=== PATIENT | male | born 1955 | race Caucasian/White ===

== ENCOUNTER → 2016-07-11 | Outpatient (CLI) | payer OTHER ==
[~2016-07-11] MED LIST: ARMOUR THYROID30 MG PO; ASPIRIN325 MG PO; AVEED750 MG/3 M IM; COZAAR50 MG PO; DEPO-TESTOS200 MG/ML IM; DEXILANT60 MG PO; DHEA50 M1 PO; ELIQUIS5 MG PO; FAMVIR 500 MG PO; FEOSOL325 MG PO; FIORINAL1 TAB PO; FISH OIL 1,2001 EACH PO; FLOMAX0.4 MG PO; FLUOCIN ACET TOP; LISINOPRIL2.5 MG PO; LUNESTA3 MG PO; MELATONIN3 MG PO; MULTAQ400 MG PO; NORCO 5-325 TA1 EACH PO; NP THYROID30 MG PO; PERCOCET 5-3251 EACH PO; POLY-IRON150 MG PO; PREVACID30 M1 PO; PROBIOTIC1 EAC2 PO; REFRESH CONTACT12 ML OPHTH; THERAGRAN-M1 TAB PO; TIKOSYN125 MCG PO; TYLENOL EXTRA500 MG PO; ULTRAM50 MG PO; VALIUM5 MG PO; VITAMIN D35000 UNI1 PO; VOLTAREN 1% GE100 GM TOP; ZEBETA5 MG PO; [UNRECOGNIZED DRUG - OTHER] SUB-Q
== END ==
LOC: GLAB 07:26
DX: Z53.9 Procedure and treatment not carried out, unspecified reason (principal)

== ENCOUNTER 2016-08-03 17:38 | Observation (INO) | payer OTHER ==
[~2016-08-03] VITALS: Ht 193 cm; Wt 102.7 kg
--- NOTE | ~2016-08-03 | CATH ---
Cardiac Diagnostic Report Demographics Patient Name YANET Bello Gender Male Date of 1955 Age 60 year(s) Patient Number [id number] Date of Study 08/04/2016 Visit Number [id number] Room Number G6328 [place] [id number] Ht 193.04 cm Wt 102.7 kg Referring Jessie Bertrand Primary Physician Physician Performing Ольга Secondary Physician Physician Aline REY Diagnostic Ольга Assisting Physician Physician Aline REY Interventional Physician Sales Representative Publications Physician Findings and Conclusions Diagnostic Findings and Conclusion Normal LVEDP 6. Mild CAD. Diagnostic Recommendations Medical treatment. Procedure Description The patient was brought to the diagnostic cardiac catheterization-EP laboratory in the fasting, non-sedated state. Informed consent was obtained in the written and verbal form after the risks and benefits were explained. The patient had no further questions and agreed to proceed. The planned puncture-incision site(s) were shaved and prepped with ChloraPrep and draped in the usual sterile manner. Conscious sedation, supplemental oxygen, and pain control medications were delivered by a registered nurse under physician guidance. Surface ECG rhythm, blood pressure measurement, and pulse oximetry were monitored throughout the procedure. Arterial access. The access site was infiltrated with lidocaine. The vessel was entered with the Seldinger technique. A sheath was advanced into the vessel and used for catheter placement. Selective left coronary angiography. A catheter was advanced into the left coronary vessel ostium under Fluoroscopic guidance. Contrast was injected by hand. Images were obtained in multiple projections. Selective right coronary angiography. A catheter was advanced into the right coronary vessel ostium under fluoroscopic guidance. Contrast was injected by hand. Images were obtained in multiple projections. Left heart catheterization. A catheter was advanced across the aortic valve to the left ventricle under fluoroscopic guidance. Resting hemodynamics were obtained. Arterial artery hemostasis was achieved. The patient was transferred to a regular nursing floor via cart accompanied by a nurse. The patient left the laboratory in stable condition. Diagnostic Cath Status: Urgent Procedure Procedure Type Diagnostic procedure:Angiography:, Coronary Angios w/[facility] Indications: Non-ST elevation ID. The procedure was explained in detail to the patient. Risks, complications and alternative treatments were reviewed. Written consent was obtained. Medications Reviewed with Patient prior to Procedure. Angiographic Findings Dominance: Right Cardiac Arteries and Lesion Findings LMCA: Minor Luminal Irregularities. LAD: Minor Luminal Irregularities.Type II. D1 and D2 medium sized. Luminal irregularities. LCx: Minor Luminal Irregularities.OM1 and OM2 very small. OM3 large. RCA: Minor Luminal Irregularities. Procedure Data Procedure Date Date: 08/04/2016Start: 03:16 PMEnd: 03:43 PM Entry Locations - Retrograde Percutaneous access was performed through the Right Radial artery (Primary location). A 6 Fr sheath was inserted. Hemostasis was successfully obtained using Mechanical Compression. Closure Comments: R band with 12 cc air applied by RT. Ede. Procedure Medications Order and Administration + + +---------+ + !Time !Medication !Dosage !Route ! + + +---------+ + !08/04/2016 03:06 PM !0.9% NaCl !20 ml/hr !I.V. drip ! + + +---------+ + !08/04/2016 03:14 PM !Versed !1 mg !I.V. ! + + +---------+ + !08/04/2016 03:18 PM !Radial 2% Lidocaine !40 mg !I.A. ! + + +---------+ + !08/04/2016 03:18 PM !Radial Nitroglycerin !200 mcg ! ! + + +---------+ + !08/04/2016 03:21 PM !Versed !0.5 mg !I.V. ! + + +---------+ + !08/04/2016 03:21 PM !Fentanyl !25 mcg !I.V. ! + + +---------+ + !08/04/2016 03:23 PM !0.9% NaCl !300 ml !I.V. bolus ! + + +---------+ + !08/04/2016 03:28 PM !Fentanyl !50 mcg !I.V. ! + + +---------+ + !08/04/2016 03:28 PM !Versed !0.5 mg !I.V. ! + + +---------+ + !08/04/2016 03:40 PM !Heparin (ACC_3) ! !I.V. drip ! + + +---------+ + Devices Used - A6 Fr. BS JR 4 Diag. Catheterwas used for:Right coronary angiography. - A6 Fr. BS JL 4 Diag. Catheterwas used for:Left coronary angiography. Contrast Material - Isovue 87522 ml Fluoroscopy Time: Diagnostic: 5:00 minutes. Total: 5:00 minutes. Fluoroscopy Dose: Diagnostic: 1500 mGy. Total: 1500 mGy. Estimated Blood Loss: 20 ml. Medical History Performed Procedures and Imaging Results - No ACC stress or imaging studies were performed. Allergies - No known allergies. Risk Factors The patient risk factors include:hypertension, last creatinine: 1.1 mg/dl, creatinine clearance: 103.74 ml/min and former tobacco use. Admission Data Admission Date: 08/03/2016 Admission Time: 05:38 PM Admit Source: Other Admission Medications + +------+-----+---------+---------+ + + !Medication !Dosage!Times!Last !Last !Administered !Comments ! ! ! !Per !Delivery !Delivery ! ! ! ! ! !Day !Date !Time ! ! ! + +------+-----+---------+---------+ + + !Unfractionated ! ! ! ! !Yes ! ! !Heparin (any) ! ! ! ! ! ! ! + +------+-----+---------+---------+ + + !ARB (any) ! ! ! ! !Yes ! ! + +------+-----+---------+---------+ + + !Non-Statin ! ! ! ! !Yes ! ! !(any) ! ! ! ! ! ! ! + +------+-----+---------+---------+ + + Clinical Evaluation Leading to Procedure - The patient's CAD presentation was assessed as: Non-STEMI.The symptom onset was first noted on 07/21/2016 12:00 AM(time was estimated). - The patient's anginal syndrome during the past two weeks was assessed as: Class IV according to the [place] Cardiovascular Society Classification System (CCS). Anti-anginal medications were prescribed during the past two weeks. Hemodynamics Condition: Rest O2 Consumption: Estimated: 266.14Heart Rate: 60 bpm Pressures (mmHg) +-----+ + !Site !Pressure ! +-----+ + !LV !97/-2 ,1 ! +-----+ + !LV !93/1 ,6 ! +-----+ + !AO !63 (74) ! +-----+ + !AO !64 (79) ! +-----+ + Shunts Oxygen Values O2 Capacity 180.88 O2 Consumption 266.14 Discharge Data Discharge Date: 08/04/2016 Hospital Status: Inpatient Signatures dtt: Aline Rolon dtd: 08/04/16 1516 Physician Self Edit
--- NOTE | ~2016-08-03 | CON ---
PATIENT'S NAME: ANNABEL AVILEZ [facility] AGE: 60 Y [address] ROOM: G6328 [place], [place] [address] LOCATION: GPCU ADMIT DATE: 08/03/2016 Consultation DISCHARGE DATE: 08/04/2016 FAMILY PHYSICIAN: KALEN SEGURA MD ATTENDING PHYSICIAN: ESTELLA FAGAN DATE OF CONSULTATION: 08/04/[address] Fagan[address] Dear Dr[address] Fagan: Thank you for asking me to see Mr. Avilez who is a 60-year-old male patient who had a permanent pacemaker placed about a year ago for syncopal spells associated with dizziness and 2nd degree AV block. Since then, he has not had any syncopal spells per se, but has had dizzy spells that preceded syncopal spells off and on, but has never gone to the extent where he would pass out. In that sense, the pacemaker seemed to help him. For the past 4-5 months, he has noticed this pain in the area of the pacemaker which radiates to the left shoulder and down the left arm. The patient does not seem to notice it when he exercises. For most part, it happens at rest or wakes him up from sleep. He walks for exercise almost 3 nights a week and also does weightlifting 2 days a week which is fairly strenuous. These do not seem to cause any symptoms of chest pain. For the past 2 weeks, he has noticed that there was low background pain, on top of which he developed intermittently increasing severity of the pain that seemed to last a few minutes each time without any associated features. He has noticed those to be more common at night in the last 2-3 weeks that wakes him up from sleep. He has also noticed that if he lies on his left shoulder, the pain comes on as well. He has been in functional class 2 with no paroxysmal nocturnal dyspnea or orthopnea. There is no history of palpitation. However, his pacemaker checked last revealed that he had an episode of atrial fibrillation which he was not aware of. This lasted about 30 minutes or so. There is no ankle swelling. The patient denies having hypertension, even though he is on losartan. He denies type 2 diabetes. His lipids are in the upper normal range. He never smoked and there is no family history of premature coronary artery disease. He denies PR, angina, or nitroglycerin use. There is no history of rheumatic fever, heart murmur, heart failure, dilated or enlarged heart, or any diagnosed cardiac arrhythmias until this atrial fibrillation was diagnosed. The patient has what appears to be multiple hormone replacement therapy through cytogenetics and this includes testosterone growth hormone as well as PATIENT'S NAME: ANNABEL AVILEZ [facility] AGE: 60 Y [address] ROOM: G6[address] [place], [place] [address] LOCATION: GPCU ADMIT DATE: 08/03/2016 Consultation DISCHARGE DATE: 08/04/2016 FAMILY PHYSICIAN: KAELN SEGURA MD ATTENDING PHYSICIAN: ESTELLA FAGAN thyroid hormone. He has also been found to have below on ferritin. An upper GI he revealed erosive esophagitis and colonoscopy x2 has been negative. His last serum ferritin was still low and his MCV and MCH, they are also low. According the patient, he has not had any Hemoccult stools done. His current list of medications includes, 1. Testosterone undecanoate 750 mg/3 mL, 0.25 mL intramuscular 3 days a week. 2. Tamsulosin 0.4 mg at bedtime. 3. Prasterone (DHEA) 50 mg once a day. 4. Melatonin 3 mg at bedtime. 5. Fish oil 3600 mg b.i.d. 6. Tramadol 50-100 mg p.r.n. pain. 7. Thyroid (pork) 30 mg two daily. 8. Lactobacillus one capsule daily. 9. Losartan/hydrochlorothiazide 25 mg at bedtime. 10. Thyroid (pork) 30 mg at bedtime. 11. Lunesta 3 mg at bedtime. 12. Iron polysaccharide complex 150 mg b.i.d. 13. Dexilant 60 mg a day. 14. Acetaminophen p.r.n. 15. Sermorelin 1 g which is 10 units subcu at bedtime. 16. Vitamin D3 5000 units at bedtime. 17. Multivitamins. 18. Fxslocn-exqtvfnn-gvxppnwlyc 1-2 tablets q.6 hours p.r.n. headache. 19. Diclofenac apply topically to the knee. 20. Fluocinonide apply topically for dry skin. 21. Famciclovir 500 mg b.i.d. for cold sore. 22. Refresh contacts. ALLERGIES: NO KNOWN DRUG ALLERGIES. PAST MEDICAL HISTORY: 1. Iron deficiency anemia and low ferritin as mentioned earlier. 2. Esophageal erosion and negative colonoscopy. 3. Left knee surgery. 4. Neck surgery. 5. Benign prostatic hypertrophy. 6. Low testosterone. 7. Hypothyroidism. 8. 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 9. Dry skin. 10. Cold sore. PATIENT'S NAME: ANNABEL AVILEZ [facility] AGE: 60 Y [address] ROOM: [place] [address] LOCATION: GPCU ADMIT DATE: 08/03/2016 Consultation DISCHARGE DATE: 08/04/2016 FAMILY PHYSICIAN: KALEN SEGURA MD ATTENDING PHYSICIAN: ESTELLA FAGAN SOCIAL HISTORY: The patient is . He has desk job for most part. He denies abusing alcohol. His appetite and weight are stable. Sleep is fair. FAMILY HISTORY: No premature coronary artery disease. REVIEW OF SYSTEMS: 12-point review of systems revealed, 1. History of recurrent headaches. 2. Loss of smell, the etiology of which has not been identified. 3. DJD. PHYSICAL EXAMINATION: VITAL SIGNS: On examination, his blood pressure is 130/80, heart rate is in the 60s and regular, respirations 18, afebrile. HEENT: Normal. NECK: Supple. No JVD, thyromegaly lymphadenopathy, or carotid bruit. PMI is not well located. First and second heart sounds are regular. There are no added sounds or murmur. CHEST: Clear to auscultation. ABDOMEN: Soft and nontender. Bowel sounds are normally present. EXTREMITIES: Revealed no edema. CENTRAL NERVOUS SYSTEM: Intact. He does have some tenderness over the pacemaker site. He was seen by Dr. Segura for his iron being low yesterday. He did mention to him about chest pain and he did an EKG, which was mildly abnormal with T-wave inversion in lead III, along with elevated troponins and he was then hospitalized the last night for further management. His troponin seemed to have slowly trended down from 0.053 to 0.042. It is not normalized completely yet and he has ongoing symptoms with chest pain. ASSESSMENT: 1. For now we will consider this as a gpz-GP-eapfgdd elevation myocardial infarction for all practical purposes, especially because it wakes him up in the middle of the night. Even though, there are lot of points in the history that seemed to point this away from cardiac pains. 2. Serum ferritin being low and having iron deficiency anemia is somewhat worrisome. If he truly has coronary artery disease that need intervention, it could potentially put him at risk for gastrointestinal bleed. PATIENT'S NAME: ANNABEL AVILEZ [facility] AGE: 60 Y [address] ROOM: [place] [address] [facility] ADMIT DATE: 08/03/2016 Consultation DISCHARGE DATE: 08/04/2016 FAMILY PHYSICIAN: KALEN SEGURA MD ATTENDING PHYSICIAN: ESTELLA FAGAN RECOMMENDATIONS: 1. We will do an echocardiogram. 2. We will follow his troponins at least up until tomorrow. 3. We will do a cardiac catheterization later as he has elevated troponins and having ongoing chest pains at low level. Again, I appreciate this opportunity to participate in the care of Mr. Avilez. MD JASWINDER CEDEÑO/alivia /[id number] d: 08/04/16 1849 t: 08/07/16 1453, CONSULTATION REPORT
--- NOTE | ~2016-08-03 | ECHO ---
Transthoracic Echocardiography Report (TTE) Demographics Patient Name ANNABEL HOLT Date of Study 08/04/2016 Patient Number [id number] Visit Number [id number] Date of 1955 Room Number G6328 Gender Male Number Age 60 year(s) Referring Ольга Mireles Operations Support Specialist Physician Physician Interpreting Ольга Mireles Cloud Engagement Partner Physician Supervising Ordering MD/MLP Physician Nurse Stress Flagstone Layer Conclusions Contractility Score Summary Normal Left Ventricular contractility was noted. Summary The estimated left ventricular ejection fraction is 60-65% with normal WM and internal dimension.Mild DAVID is seen.Remainder of LV wall segments appears to have normal wall thickness. The interatrial septum appears aneurysmal with PFO. Mild mitral regurgitation by color Doppler. Mild tricuspid regurgitation by color Doppler. Pace maker wires seen in RHCs. Procedure Type of Study TTE procedure:2D Echocardiogram. Procedure Date Date: 08/04/2016 Start: 12:58 PM Allergies - No known allergies. M-Mode/2D Measurements LV Diastolic Dimension: 4.77 cm LV Systolic Dimension: 2.58 cm LV Septum Diastolic: 1.42 cm LV PW Diastolic: 1.04 cm AO Root Dimension: 2.7 cm AV Cusp Separation: 2.3 cm RV Diastolic Dimension: 4.14 cm LA Dimension: 3.8 cm EF Estimated: 60 % LA volume: 72 ml RV Base: 3.31 cm LVOT: 2.4 cm RV Mid: 3.93 cm LVOT VTI: 16.8 cm RV Length: 8.38 cm LV Stroke volume: 75.96 ml TDI-S': 12.8 cm/s Doppler Measurements AV Peak Velocity: 1.41 m/s MV Peak E-Wave: 0.48 m/s AV Peak Gradient: 7.95 mmHg MV Peak A-Wave: 0.56 m/s AV Mean Gradient: 5 mmHg MV E/A Ratio: 0.86 LVOT Peak Velocity: 0.75 m/s MV P1/2t: 103 msec TR Gradient:22.28 mmHg PV Peak Velocity: 1 m/s Estimated RAP:5 mmHg PV Peak Gradient: 3.99 mmHg Estimated RVSP: 27 mmHg Estimated PASP: 27.28 mmHg E' Septal Velocity: 0.09 m/s A' Septal Velocity: 0.12 m/s E' Lateral Velocity: 0.1 m/s A' Lateral Velocity: 0.16 m/s Findings Left Ventricle Mild DAVID with normal wall thickness of the remainder of the LV segments.LVEF is normal with normal WM and internal dimension. Right Ventricle Normal right ventricle structure and function. Device lead noted in the right ventricle. Left Atrium The left atrium is normal in size. The interatrial septum appears aneurysmal. Bubble study was done, bubbles crossed to the left atrium suggesting a PFO . Right Atrium The right atrium is normal. IVC measures 1.44 cm with inspiratory collapse. Device lead seen in the right atrium. Mitral Valve Mild mitral regurgitation by color Doppler. Aortic Valve Normal aortic valve structure and function. Tricuspid Valve Mild tricuspid regurgitation by color Doppler. Pulmonic Valve Normal pulmonic valve structure and function. Pericardial Effusion No evidence of pericardial effusion. Miscellaneous Visualized portions of the aortic root and ascending aorta appear normal in size. Pleural Effusion Pleural effusion present. Contractility Score LV regional wall motion:(0-Non visualized 1-Normal 2-Hypokinesis 3-Akinesis 4-Dyskinesis 5-Aneurysm) Signature dtt: Aline Rolon dtd: 08/04/16 1258 Physician Self Edit
--- NOTE | ~2016-08-03 | HP ---
PATIENT'S NAME: ANNABEL HOLT [facility] AGE: 60 Y [address] ROOM: [address] [place], [place] [address] [facility] ADMIT DATE: 08/03/2016 History & Physical DISCHARGE DATE: FAMILY PHYSICIAN: KALEN ROMAN MD ATTENDING PHYSICIAN: ESTELLA FAGAN DATE OF SERVICE: CHIEF COMPLAINT: Left-sided chest pain beneath the pacemaker. HISTORY OF PRESENT ILLNESS: This is a 60-year-old male, who is essentially healthy, active patient, who was sent in from his PCP's office after the patient had complained of left upper-sided chest pain for the past 2 weeks. An EKG, which was obtained, showed a flipped T-wave only in the lead III, which was the only thing know from his EKG. History as obtained from the patient, he reported that he went in for his regular followup with his PCP, Dr. Roman, for his iron deficiency anemia followup. After he was done and the patient was about to leave, the patient did complain of some left upper-sided chest pain beneath his pacemaker, which has been going on for the past 2 weeks and so they decided to get an EKG, which showed a flipped T-wave in lead 3 only; and his cardiac enzyme, which was done, showed a CK-MB of 10.8 and a troponin of 0.053. The patient reports that he has been having left-sided chest pain at the upper part of his left side beneath his pacemaker for the past 2 weeks. He reported that the pain comes spontaneously, but he denies any chest pain during activities like while riding his bicycle or when he is in the gym. He reports that the pain is beneath his pacemaker and radiates to his triceps and also to his left hand. He states that his left hand becomes numb and after he moves it around, the numbness resolved. He reported that the pain is worse when he lays on his left hand and so because of that he has always sleeps on his back. He denies associated shortness of breath. Denies any dizziness, though he notes intermittently he still does get some lightheadedness. He reports that towards the end of last month, he was called for his pacemaker, which showed that he was in atrial fibrillation for 30 hours. He reported that he came into the clinic at [facility], and the EKG which was done showed him to be back into sinus. He reported that he was put on metoprolol, but after taking this, he developed some symptoms and he was put back on his Cozaar. He denies fever. Denies shortness of breath. Denies abdominal pain. Denies diarrhea. Denies urinary symptoms. REVIEW OF SYSTEMS: The 13 elements of review of systems were asked and as documented in the HPI, the others are negative. PATIENT'S NAME: ANNABEL HOLT [facility] AGE: 60 Y [address] ROOM: [place] [address] LOC[facility]: [facility] ADMIT DATE: 08/03/2016 History & Physical DISCHARGE DATE: FAMILY PHYSICIAN: KALEN ROMAN MD ATTENDING PHYSICIAN: ESTELLA FAGAN PAST MEDICAL HISTORY: Second-degree AV block status post pacemaker placement, iron deficiency anemia, paroxysmal atrial fibrillation, and hypotestosterone. PAST SURGICAL HISTORY: Meniscus repair and appendectomy. SOCIAL HISTORY: Smoked while he was in high school for 3 years, one pack per day. Denies use of alcohol. Denies use of any illicit drugs. FAMILY HISTORY: Mother at the age of 90. Father as well in late 80s. PHYSICAL EXAMINATION: VITAL SIGNS: Blood pressure 160/98, though the patient reports that while in the clinic his blood pressure systolic was 120. Oxygen saturation 99% on room air. Pulse is 60. Respiratory rate 12. GENERAL: Reveals a male, who is very well built physically. He is alert, awake, oriented x3, not in any form of painful or respiratory distress. NEUROLOGIC: Cranial nerve II through XII are intact bilaterally. Sensory is intact bilaterally. Power is 5/5 in all the extremities. HEENT: Normocephalic and atraumatic. Pupils equal, round, and reactive to light bilaterally. Pharynx is normal. Mucosa is moist. Ears: No obvious ear discharge or drainage. NECK: Supple. No area of tenderness. No lymphadenopathy. CARDIOVASCULAR SYSTEM: Normal S1 and S2. Regular rate and rhythm. CHEST: Mildly reproducible chest pain around the area of the pacemaker. LUNGS: Clear to auscultation bilaterally. ABDOMEN: Soft and nondistended. No area of tenderness. No palpable organomegaly. Positive bowel sounds. EXTREMITIES: There is no joint swelling or erythema or tenderness. SKIN: No rash or skin breakdown. LABORATORY DATA: Labs, which were done today at the PCP office. Troponin 0.053. CK-MB 10.8. ASSESSMENT AND PLAN: This is a 60-year-old male, pretty athletic tanvi, who comes in with left-sided chest pain beneath his pacemaker. 1. Atypical chest pain, present on admission, may be secondary to acute coronary syndrome, though less likely. The elevation in the troponin may be secondary to probably displaced pacemaker leads. However, we will start the patient on heparin drip as per the ACS protocol. DrSonia has been informed by Dr. Roman and we will follow up per PATIENT'S NAME: ANNABEL HOLT [facility] AGE: 60 Y [address] ROOM: [place] [address] [facility] ADMIT DATE: 08/03/2016 History & Physical DISCHARGE DATE: FAMILY PHYSICIAN: KALEN ROMAN MD ATTENDING PHYSICIAN: ESTELLA FAGAN his recommendation. 2. Situational hypertension. We will keep a close eye on this and monitor and keep the patient more comfortable; however, if systolic blood pressure is greater than 170, we will give the patient some hydralazine IV p.r.n. 3. Heart block, status post pacemaker placement. 4. Paroxysmal atrial fibrillation, rate controlled. We will continue the patient on his medication. 5. Hypotestosterone. The patient's supplement is currently on hold secondary to his elevated testosterone level. The line of management was explained to the patient, whose questions were answered and had no further questions at this time. ESTELLA FAGAN MD ODO/modl /[id number] D: [id number] T: [id number] HISTORY & PHYSICAL
[~2016-08-03 17:38] MED LIST changes: -ARMOUR THYROID30 MG PO; -ASPIRIN325 MG PO; -DEPO-TESTOS200 MG/ML IM; -DEXILANT60 MG PO; -ELIQUIS5 MG PO; -FAMVIR 500 MG PO; -FEOSOL325 MG PO; -FIORINAL1 TAB PO; -FLUOCIN ACET TOP; -LUNESTA3 MG PO; -MULTAQ400 MG PO; -POLY-IRON150 MG PO; -PREVACID30 M1 PO; -REFRESH CONTACT12 ML OPHTH; -THERAGRAN-M1 TAB PO; -TIKOSYN125 MCG PO; -TYLENOL EXTRA500 MG PO; -VALIUM5 MG PO; -VITAMIN D35000 UNI1 PO; -VOLTAREN 1% GE100 GM TOP; -ZEBETA5 MG PO; -[UNRECOGNIZED DRUG - OTHER] SUB-Q
[2016-08-03] MEDS ORDERED: ARMOUR THYROID30 MG PO (18:47)
[2016-08-03] MEDS ORDERED: LUNESTA3 MG PO (18:48)
[2016-08-03] MEDS ORDERED: DEXILANT60 MG PO (18:49)
[2016-08-03] MEDS ORDERED: POLY-IRON150 MG PO (18:49)
[2016-08-03] MEDS ORDERED: TYLENOL EXTRA500 MG PO (18:50)
[2016-08-03] MEDS ORDERED: [UNRECOGNIZED DRUG - OTHER] SUB-Q (18:55)
[2016-08-03] MEDS ORDERED: VITAMIN D35000 UNI1 PO (18:55)
[2016-08-03] MEDS ORDERED: FIORINAL1 TAB PO (18:57)
[2016-08-03] MEDS ORDERED: VOLTAREN 1% GE100 GM TOP (18:57)
[2016-08-03] MEDS ORDERED: FLUOCIN ACET TOP (18:59)
[2016-08-03] MEDS ORDERED: FAMVIR 500 MG PO (19:01)
[2016-08-03] MEDS ORDERED: REFRESH CONTACT12 ML OPHTH (19:01)
--- NOTE | 2016-08-03 20:35 | NUR ---
60 Y/O MALE ADMITTED FROM DR OFFICE WHERE HE WAS FOR A REGULAR CHECK UP. PT ADMITTED FOR ACUTE CORONARY SYNDROME. PT C/O LEFT CHEST PAIN THAT HAS BEEN CONSTANT FOR THE PAST FEW WEEKS, PT STATES THIS PAIN VARIES IN INTENSITY BUT HAS & DOES RADIATE DOWN HIS LEFT ARM AND CAUSE HIS LEFT HAND TO BOCOME NUMB AT TIMES. PT IS A&OX3, DENIES ANY SOB. ALLERGIES - NO KNOWN MEDICATION ALLERGIES MEDICAL & SURGICAL HISTORY - TONSILS, BILAT KNEE SCOPES, ACD/FUSION, COLONOSCOPY, LT QUADRICEP MUSCLE TEAR & REPAIR IN 2012, LT KNEE SURGERY, PACEMAKER PLACE IN [facility] ([place]) FOR SYNCOPAL EPISODES. ARTHRITIS, LWR BACK STIFFNESS, GERD, HEARTBURN, BPH, FORMER SMOKER-QUIT IN 1980, DRINKS 2X/WEEK APPROX 2 DRINKS. REPORT GIVEN TO PT PRIMARY CARE NURSE DAVID ROBERT ADM EDUCATION DONE
[2016-08-04 03:27] LABS: BASOPHIL # 0.1 K/uL (0.0-0.2); BASOPHIL % 1.3 %; EOSINOPHIL # 0.6 K/uL (0.0-0.5); EOSINOPHIL % 10.6 %; HEMATOCRIT 42.4 % (37.0-53.0); HEMOGLOBIN 13.3 g/dL (11.0-16.0); IMMATURE GRANULOCYTE % 0.2 %; LYMPHOCYTE # 1.3 K/uL (0.8-4.0); MCH 24.8 pg (27.0-34.0); MCHC 31.4 gm/dL (32.0-36.5); MCV 79.1 fl (83.0-98.0); MONOCYTE # 0.8 K/uL (0.0-1.0); MONOCYTE % 13.7 %; MPV 8.2 fl (9.4-12.4); NEUTROPHIL # (ANC) 2.8 K/uL (1.4-9.0); NEUTROPHIL % 50.2 %; NRBC % 0 /100WBC (0-0.00); PLATELET COUNT 190 K/uL (150-450); RBC 5.36 M/uL (3.50-5.50); RDW-CV 18.6 % (11.9-14.6); WBC 5.5 K/uL (4.0-11.0)
[2016-08-04 03:56] LABS: ANION GAP 12.2 (10.0-19.0); BLOOD UREA NITROGEN 26 mg/dL (6-24); CALCIUM 8.7 mg/dL (8.5-10.5); CHLORIDE 107 mMol/L (96-110); CO2 26 mMol/L (22-32); CREATININE 1.1 mg/dL (0.6-1.3); ESTIMATED GFR (MDRD EQUATION) > 60; MAGNESIUM 2.2 mg/dL (1.8-2.6); POTASSIUM 4.2 mMol/L (3.7-5.1); SODIUM 141 mMol/L (135-145)
--- NOTE | 2016-08-04 04:42 | NUR ---
Significant Event: Patient A/Ox3. VSS on RA. Patient is up SBA. Aside from chest pain under pacer, patient is very healthy. The rest of his assessment is negative, though patient does state he has some constipation from his iron pills. Heparin gtt running at 1200u/hr. Dr. Avalos consulted, but has not yet seen the patient. Follow up: Cardiology consult today
--- NOTE | 2016-08-04 16:49 | NUR ---
Significant Event: Alert & oriented. VSS, afebrile, room air. Continues to have chest pain, worse when laying down, radiates to left arm with left hand numbness, not relieved by Nitro. R) radial heart cath today with no interventions. Fioricet given x2 for headache. NS at 125 ml/hr to R) forearm. Follow-up: Need hemoccult stool sample
[2016-08-04] MEDS ORDERED: ASPIRIN325 MG PO (21:36)
--- NOTE | 2016-08-05 00:47 | NUR ---
Patient seen and examined by Dr. Barba post radial heart cath and was cleared to be dismissed to home. All education provided to patient, including post radial heart cath cares; patient and verbalized understanding. Patient's last set of vital signs were stable. Denied any pain. Right radial site was soft, non-tender, non-ecchymotic, with good CSM. Patient and escorted to [facility] at 2155.
[2016-11-16] MEDS ORDERED: FEOSOL325 MG PO (15:15)
[2016-11-16] MEDS ORDERED: MULTAQ400 MG PO (15:16)
[2016-11-16] MEDS ORDERED: [UNRECOGNIZED DRUG - OTHER] SUB-Q (15:18)
[2016-11-16] MEDS ORDERED: DEPO-TESTOS200 MG/ML IM (15:20)
[2016-11-16] MEDS ORDERED: ZEBETA5 MG PO (15:21)
[2016-11-16] MEDS ORDERED: THERAGRAN-M1 TAB PO (15:22)
== END 2016-08-04 21:55 | disposition disaster alternative care site (69) ==
LOC: GPCU 17:38
PROVIDERS: ADMIT Hospitalist
DX: R07.89 Other chest pain (principal); I24.9 Acute ischemic heart disease, unspecified; I10 Essential (primary) hypertension; I45.9 Conduction disorder, unspecified; I48.0 Paroxysmal atrial fibrillation; D50.9 Iron deficiency anemia, unspecified; N40.0 Benign prostatic hyperplasia without lower urinary tract symptoms; E03.9 Hypothyroidism, unspecified; K22.10 Ulcer of esophagus without bleeding; Z95.0 Presence of cardiac pacemaker; Z87.891 Personal history of nicotine dependence; Z79.899 Other long term (current) drug therapy; Z98.890 Other specified postprocedural states
CPT/HCPCS: C1894; C8929; G0378; G0379; J1644; J2250; J3010; J7030

== ENCOUNTER → 2016-08-03 | Outpatient (CLI) | payer OTHER | LOC: LGSMG 16:28 | DX: R07.89 Other chest pain (principal) ==

== ENCOUNTER → 2016-08-10 | Outpatient (CLI) | payer OTHER ==
[~2016-08-10] MED LIST changes: +ARMOUR THYROID30 MG PO; +ASPIRIN325 MG PO; +DEPO-TESTOS200 MG/ML IM; +DEXILANT60 MG PO; +ELIQUIS5 MG PO; +FAMVIR 500 MG PO; +FEOSOL325 MG PO; +FIORINAL1 TAB PO; +FLUOCIN ACET TOP; +LUNESTA3 MG PO; +MULTAQ400 MG PO; +POLY-IRON150 MG PO; +PREVACID30 M1 PO; +REFRESH CONTACT12 ML OPHTH; +THERAGRAN-M1 TAB PO; +TIKOSYN125 MCG PO; +TYLENOL EXTRA500 MG PO; +VALIUM5 MG PO; +VITAMIN D35000 UNI1 PO; +VOLTAREN 1% GE100 GM TOP; +ZEBETA5 MG PO; +[UNRECOGNIZED DRUG - OTHER] SUB-Q
== END ==
LOC: LGSOS 09:26
DX: I51.4 Myocarditis, unspecified (principal)

== ENCOUNTER → 2016-08-23 | Outpatient (CLI) | payer OTHER | END | disposition disaster alternative care site (69) | LOC: LGSOS 13:55 | DX: I51.4 Myocarditis, unspecified (principal) ==

== ENCOUNTER → 2016-09-04 | Outpatient (CLI) | payer OTHER | END | disposition disaster alternative care site (69) | LOC: GLAB 07:30 | DX: E29.1 Testicular hypofunction (principal) ==

== ENCOUNTER → 2016-09-12 | Outpatient (CLI) | payer OTHER | LOC: LGSOS 09:58 | DX: I51.4 Myocarditis, unspecified (principal) ==

== ENCOUNTER → 2016-09-21 | Outpatient (CLI) | payer OTHER ==
[2016-09-21 14:38] LABS: ALBUMIN 3.5 gm/dL (3.5-5.0); ALK PHOS 51 IU/L (33-138); ALT 49 IU/L (12-78); AST 21 IU/L (10-40); BLOOD UREA NITROGEN 29 mg/dL (6-24); CALCIUM 8.7 mg/dL (8.5-10.5); CHLORIDE 105 mMol/L (96-110); CO2 27 mMol/L (22-32); CREATININE 1.2 mg/dL (0.6-1.3); ESTIMATED GFR (MDRD EQUATION) > 60; SODIUM 140 mMol/L (135-145); TOTAL BILIRUBIN 0.5 mg/dL (0.0-1.5); TOTAL PROTEIN 6.7 g/dL (6.0-8.4)
== END | disposition disaster alternative care site (69) ==
LOC: GLAB 13:37 → GRAD 15:00
PROVIDERS: Internal Medicine Interventional Cardiology
DX: I51.4 Myocarditis, unspecified (principal); R06.02 Shortness of breath; Z95.0 Presence of cardiac pacemaker

== ENCOUNTER → 2016-09-28 | Outpatient (CLI) | payer OTHER ==
--- NOTE | ~2016-09-28 | ECHO ---
Transthoracic Echocardiography Report (TTE) Demographics Patient Name ANNABEL HOLT Date of Study 09/28/2016 Patient Number [id number] Visit Number [id number] Date of 1955 Room Number Gender Male Number Age 60 year(s) Referring [facility] Manager Of Community Relations Castillo Moncada RVT, Physician RDCS Physician Interpreting Ольга Mireles Engine Lathe Operator Physician MD Supervising Ordering Ольга Mireles MD/AMADAP Physician MD Nurse Stress Economics Instructor Conclusions Contractility Score Summary Normal Left Ventricular contractility was noted. Summary Limited echo for evaluation of decreased ejection fraction on PET study. The estimated left ventricular ejection fraction is 55% with mild to moderate DAVID,normal WM and internal dimension. Not significantly different from 08/04/2016. Procedure Type of Study TTE procedure:Echo Limited w/o Contrast. Procedure Date Date: 09/28/2016 Start: 09:02 AM Study Location: Echo Lab Technical Quality: Good visualization Indications:Decreased EF. Appropriate Use Criteria: 8 Patient Status: Routine Rhythm: Paced HR: 88 bpm BP: 116/73 mmHg Allergies - No known allergies. M-Mode/2D Measurements LV Diastolic Dimension: 5.03 cm LV Systolic Dimension: 3.48 cm LV Septum Diastolic: 1.46 cm LV PW Diastolic: 0.9 cm AO Root Dimension: 2.8 cm AV Cusp Separation: 2.5 cm RV Diastolic Dimension: 4.02 cm LA Dimension: 3.4 cm LVOT: 2.4 cm Findings Left Ventricle DAVID of mild to moderate degree.Rest of the LV wall thickness appears to be normal.Low normal EF without WMAs.Normal internal dimension. Right Ventricle Normal right ventricle structure and function.Pacer wires in RHCs. Left Atrium Normal left atrial size. Right Atrium Normal right atrial size. Pericardial Effusion No evidence of pericardial effusion. Miscellaneous Visualized portions of the aortic root and ascending aorta appear normal in size. Pleural Effusion No evidence of pleural effusion. Contractility Score LV regional wall motion:(0-Non visualized 1-Normal 2-Hypokinesis 3-Akinesis 4-Dyskinesis 5-Aneurysm) Signature dtt: Aline Rolon dtd: 09/28/16 0902 Physician Self Edit
== END | disposition disaster alternative care site (69) ==
LOC: GCAR 08:49
DX: R93.1 Abnormal findings on diagnostic imaging of heart and coronary circulation (principal)

== ENCOUNTER → 2016-11-19 | Day surgery (SDC) | payer OTHER ==
[~2016-11-19] VITALS: Ht 193 cm; Wt 98.5 kg
--- NOTE | ~2016-11-19 | ECHO ---
Transesophageal Echocardiography Report (NICOLETTE) Demographics Patient Name ANNABEL HOLT Date of Study 11/19/2016 Patient Number [id number] Visit Number [id number] Date of 1955 Room Number Gender Male Number Age 61 year(s) Referring [facility] Rn Ent Alba SANCHEZ, [facility] Physician MD Herrera Physician Interpreting Ольга Mireles MD Cement Loader Physician Supervising Ordering Ольга Mireles MD, MD/MLP Physician Nurse Stress Brokerage Coordinator Conclusions Summary Normal LVEF. Mild MR- central jet. No SHAINA thrombus or spontaneous contrast in LA. Highest velocity across the ostium of SHAINA is 40 cm/sec. Procedure Type of Study NICOLETTE procedure:Doppler , NICOLETTE with Color. Procedure Date Date: 11/19/2016 Start: 02:20 PM Study Location: Echo Lab Technical Quality: Adequate visualization Indications:Atrial fibrillation. Appropriate Use Criteria: 9 Patient Status: Routine HR: 52 bpm BP: 126/79 mmHg Allergies - No known allergies. Signature dtt: Aline Rolon dtd: 11/19/16 1420 Physician Self Edit
--- NOTE | ~2016-11-19 | OR ---
PATIENT'S NAME: ANNABEL HOLT [facility] AGE: 61 Y [address] ROOM: [place] [address] LOCATION: [facility] ADMIT DATE: 11/19/2016 OR/Procedure Report DISCHARGE DATE: FAMILY PHYSICIAN: KALEN SEGURA MD ATTENDING PHYSICIAN: Aline Rolon SURGEON: Aline Rolon MD PORTUGUESE TUTOR: DATE OF PROCEDURE: 11/19/2016 CARDIOVERSION: INDICATION: Symptomatic atrial fibrillation. PROCEDURE: After obtaining informed consent, the patient was brought to the outpatient. He had a NICOLETTE done, which revealed no evidence of left atrial appendage thrombus. Cardioversion was performed using anteroposterior paddle placement. Initial attempts with 250 joules and 360 joules failed. A third attempt at 360 joules did succeed in getting him cardioverted to regular sinus rhythm with the atrial pace and ventricular conducted beats. The patient tolerated the procedure well. There were no complications noted. MD JASWINDER CEDEÑO/alivia /[id number] d: 11/20/162237 t: 11/28/16 1209, OPERATIVE SUMMARY
--- NOTE | ~2016-11-19 | OR ---
PATIENT'S NAME: ANNABEL HOLT [facility] AGE: 61 Y [address] ROOM: [place] [address] LOCATION: [facility] ADMIT DATE: 11/19/2016 OR/Procedure Report DISCHARGE DATE: FAMILY PHYSICIAN: KALEN SEGURA MD ATTENDING PHYSICIAN: Aline Rolon SURGEON: Omari Vee MD HEALTH PROGRAM MANAGER: DATE OF PROCEDURE: 11/19/2016 ADDENDUM: PROCEDURE: Please note that he had esophageal dilatation in addition to EGD and biopsy. MD ALVRAEZ LÓPEZ/alivia /[id number] d: 11/19/16 1856 t: 11/26/16 0819, OPERATIVE SUMMARY
--- NOTE | 2016-11-19 15:06 | NUR ---
D: Doctor unable to pass NICOLETTE scope down patient, after 2-3 attempts. I: Doctor called G.I.specialist. D: G.I.specialist here at 1530. Unable to pass NICOLETTE scope after a few attempts. I: Patient scheduled for EGD. I: Report recieved from SPRING UP SUPERVISOR. Recovering patient post op till ENDO nurses here. D: Patient to ENDO at 1637. P: After EGD, will to NICOLETTE and cardioversion in ENDO room...
== END | disposition disaster alternative care site (69) ==
LOC: GOPD 11-16 10:00 → EDSTATUS 13:00 → GOPD 13:00
PROC: 0DB68ZX Excision of Stomach, Via Natural or Artificial Opening Endoscopic, Diagnostic (ICD-10-PCS; principal; 2016-11-19)
PROC: 0D718ZZ Dilation of Upper Esophagus, Via Natural or Artificial Opening Endoscopic (ICD-10-PCS; 2016-11-19)
PROC: 5A2204Z Restoration of Cardiac Rhythm, Single (ICD-10-PCS; 2016-11-19)
DX: I48.0 Paroxysmal atrial fibrillation (principal); K22.2 Esophageal obstruction; I11.0 Hypertensive heart disease with heart failure; I50.9 Heart failure, unspecified; I42.2 Other hypertrophic cardiomyopathy; E03.9 Hypothyroidism, unspecified; I44.1 Atrioventricular block, second degree; K21.9 Gastro-esophageal reflux disease without esophagitis; Z98.890 Other specified postprocedural states; Z95.0 Presence of cardiac pacemaker
CPT/HCPCS: J2001; J7030

== ENCOUNTER 2016-12-07 07:54 | Inpatient (IN) | payer OTHER ==
[~2016-12-07] VITALS: Ht 193 cm; Wt 99.1 kg
--- NOTE | ~2016-12-07 | DS ---
PATIENT'S NAME: ANNABEL HOLT [facility] AGE: 61 Y [address] ROOM: [address] [place] [id number] LOCATION: GPCU ADMIT DATE: 12/07/2016 Discharge Summary DISCHARGE DATE: 12/10/2016 FAMILY PHYSICIAN: Jerzy Roman MD ATTENDING PHYSICIAN: Aline Rolon DISCHARGE DIAGNOSES: 1. Symptomatic paroxysmal/persistent atrial fibrillation. 2. History of permanent pacemaker placement for dizziness and syncope. 3. Recent history of myocarditis, possibly due to high doses of testosterone. This was diagnosed on the basis of PET scanning as MRI could not be done because the patient already had a pacemaker placed. 4. History of asymmetric septal hypertrophy. 5. Hypothyroidism. 6. Hypertension. 7. Interatrial septal aneurysm with patent foramen ovale. 8. Iron deficiency with low ferritin levels, the etiology of which is unclear. 9. History of esophageal erosion. 10. Benign prostatic hypertrophy. 11. Low testosterone. 12. Cold sores. 13. Administration of growth hormone. DISCHARGE MEDICATIONS: 1. Vitamin D3 5000 units once a day. 2. Fish Oil 1200 mg twice a day. 3. Ferrous sulfate 325 mg 3 times a day. 4. Tikosyn 500 mcg twice a day. 5. Melatonin 3 mg at bedtime. 6. Prevacid 30 mg every day. 7. Tamsulosin 0.4 mg every night. 8. Testosterone 50 mg IM 2 times a week. 9. Growth Hormone 10 units subcu at bedtime. 10. Tramadol 50 to 100 mg p.r.n. 11. Oxycodone 5/325 every 6 hours p.r.n. 12. Thyroid (pork) 30 mg every morning and 30 mg at bedtime. 13. Lunesta 3 mg at bedtime. 14. Tylenol p.r.n. 15. Fiorinal p.r.n. 16. Fluocinolone acetonide cream. 17. Famciclovir 500 mg p.r.n. 18. Refresh ophthalmic drops p.r.n. 19. Diazepam 5 mg every 6 hours p.r.n. 20. Prasterone 50 mg every day. PATIENT'S NAME: ANNABEL HOLT [facility] AGE: 61 Y [address] ROOM: [address] [place], [place] [address] [facility]: [facility] ADMIT DATE: 12/07/2016 Discharge Summary DISCHARGE DATE: 12/10/2016 FAMILY PHYSICIAN: Jerzy Roman MD ATTENDING PHYSICIAN: Aline Rolon 21. Voltaren gel locally. 22. Apixaban 5 mg b.i.d. HOSPITAL COURSE: The patient has in the past tried Multaq, and he failed Multaq trial. He had no side affects per se from Multaq. So after discussing ablation versus medications, he opted for Tikosyn based on all the pros and cons that we discussed of agents such as Rythmol, flecainide, sotalol, amiodarone, and Tikosyn. Flecainide, amiodarone, sotalol were mostly not the best options in his case because of structural heart disease that he has had. I also was not very sure that Rythmol is going to benefit him by a large if he failed Multaq. During the course of hospitalization, he was initiated on Tikosyn at 125 mcg twice a day and gradually increased, monitoring his EKG before and after each dose. His QTc numbers looked perfect without much of change at all during the entire 3 full days of monitoring. On fourth day morning, the patient was still in atrial fibrillation and so he underwent cardioversion, back to regular sinus rhythm. He will be followed up in about 2 weeks in the office with a 12-lead EKG. MD JASWINDER CEDEÑO/alivia /[id number] d: t: 12/27/16 1216, DISCHARGE SUMMARY
--- NOTE | ~2016-12-07 | OR ---
PATIENT'S NAME: ANNABEL HOLT [facility] AGE: 61 Y [address] ROOM: [place] [address] LOCATION: GPCU ADMIT DATE: 12/07/2016 OR/Procedure Report DISCHARGE DATE: 12/10/2016 FAMILY PHYSICIAN: Jerzy Roman MD ATTENDING PHYSICIAN: Aline Rolon SURGEON: Aline Rolon MD ACADEMIC SERVICES PROFESSIONAL: DATE OF PROCEDURE: 12/10/2016 PROCEDURE PERFORMED: Cardioversion. INDICATION: 1. Atrial fibrillation, which he is symptomatic of. 2. The patient had cardioversion in the past and he has gone back to atrial fibrillation. 3. He has been initiated on 500 mcg of Tikosyn and heparin. The patient has been cardioverted to regular sinus rhythm today. With the help of nurse nutritional yeast supervisor who gave him propofol 5 initially, anteroposterior paddle placement, and cardioversion using 200 joules did not depolarize his myocardium. 360 joules got him back to regular sinus rhythm with atrial paced and ventricular sensed rhythm was obtained. The patient tolerated the procedure well. There were no complications noted. MD JASWINDER CEDEÑO/alivia /[id number] d: 12/10/16 1452 t: 12/26/16 1726, OPERATIVE SUMMARY
--- NOTE | ~2016-12-07 | HP ---
PATIENT'S NAME: ANNABEL HOLT [facility] AGE: 61 Y [address] ROOM: [address] [place], [place] [address] LOCATION: [facility] ADMIT DATE: 12/07/2016 History & Physical DISCHARGE DATE: FAMILY PHYSICIAN: KALEN SEGURA MD ATTENDING PHYSICIAN: Aline Rolon DATE OF SERVICE: HISTORY OF PRESENT ILLNESS: Annable is a 61-year-old male patient who has symptomatic atrial fibrillation. Approximately about a year ago, he underwent permanent pacemaker placement for recurrent episodes of dizziness and syncope. Since then, he has been noted to have paroxysmal atrial fibrillation of which he is somewhat symptomatic of. Lately, they have been more persistent and he has had a sense that he just is not feeling well. He was placed on Multaq after discussing all the other options. Then, he was brought in as he was already on oral anticoagulant. He was cardioverted on the third attempt to regular sinus rhythm. His NICOLETTE was difficult to intubate and Dr. Vee, the automobile body worker, helped with the intubation as well as he dilated the proximal esophagus as well. After considering a variety of options including ablation which he does not want to go through at this time, he opted to consider Tikosyn. Given his asymmetrical septal hypertrophy and evidence for the presence of myocarditis in the form of elevated enzymes as well as PET scan study, he is being admitted for initiation of Tikosyn. The patient is an avid filling machine operator. When I first saw him sometime in July of 2016, he had come in with some chest pain related to the pacemaker site. It was interesting that his troponins went up at that time. Based on the elevation of troponin and echo findings, the patient is currently being managed as if he did have mild myocarditis and he has mild asymmetric septal hypertrophy. The patient has had a negative cardiac catheterization with a normal LVEDP in July. Currently, he is in functional class 2. He denies any chest pains. There is no paroxysmal nocturnal dyspnea or orthopnea. He denies any lightheadedness, dizziness, syncope, presyncope, palpitations, or ankle swelling. The patient has no history of angina or nitroglycerin use. There is no history of rheumatic fever, heart murmur, congestive heart, failure, dilated heart. MEDICATIONS: His current list of medications: 1. Tylenol 500 mg 2 tablets as needed every 6 hours. 2. Weston Thyroid 30 mg 2 tablets every morning and 1 tablet at bedtime. PATIENT'S NAME: ANNABEL HOLT [facility] AGE: 61 Y [address] ROOM: [address] [place], [place] [address] LOC[facility]: [facility] ADMIT DATE: 12/07/2016 History & Physical DISCHARGE DATE: FAMILY PHYSICIAN: KALEN SEGURA MD ATTENDING PHYSICIAN: Aline Rolon 3. Aspirin 325 mg a day. 4. DHEA 50, 50, capsules a day. 5. Eszopiclone 3 mg tablet before bedtime p.r.n. 6. Famvir 500 mg twice a day p.r.n. 7. Fiorinal 50/325/40, 1 to 2 capsules p.r.n. every 6 hours. 8. Fish oil 1200 mg 3 capsules twice a day. 9. Fluocinolone acetonide 0.025% cream apply to the affected area externally twice. 10. Melatonin 3 mg at bedtime p.r.n. 11. Percocet 5/325 one tablet as needed every 6 hours p.r.n. 12. Refresh eye drops. 13. Sermorelin Acetate 10 units subcutaneously. 14. Tamsulosin 0.4 mg capsule once a day. 15. Testosterone 100 mg/mL solution 0.25 mL intramuscular 2 times a week. 16. Tramadol 50 mg 1 to 2 tablets p.r.n. 17. Vitamin D3 5000 units a day. 18. Voltaren 1% transdermal p.r.n. 19. Multaq 400 b.i.d. which he has stopped 4 days earlier. ALLERGIES: NO KNOWN DRUG ALLERGIES. PAST MEDICAL HISTORY: 1. Hypothyroidism. 2. Hypertension. 3. History of syncopal spells for which he had permanent pacemaker placement. 4. Myocarditis as above. 5. Asymmetric septal hypertrophy. 6. Persistent atrial fibrillation/flutter. 7. Interatrial septal aneurysm with PFO. 8. Iron deficiency with a low ferritin. 9. Esophageal erosion with negative colonoscopy. 10. Benign prostatic hypertrophy. 11. Low testosterone. 12. Cold sores. 13. Administration of growth hormones. SOCIAL HISTORY: The patient is . He denies abusing alcohol. His appetite and weight are stable. Sleep is fair. FAMILY HISTORY: No premature coronary artery disease. PATIENT'S NAME: ANNABEL HOLT [facility] AGE: 61 Y [address] ROOM: [address] [place], [place] [address] LOC[facility] ADMIT DATE: 12/07/2016 History & Physical DISCHARGE DATE: FAMILY PHYSICIAN: KALEN SEGURA MD ATTENDING PHYSICIAN: Aline Rolon REVIEW OF SYSTEMS: A 12-point review of systems reveal some fatigability and tiredness. Otherwise, the patient denies any significant problems. PHYSICAL EXAMINATION: VITAL SIGNS: On examination, his blood pressure is 116/70, heart rate is in his 60s and irregular, respiration is 16, afebrile, oxygen saturation is 96% on room air. HEENT: Normal. NECK: Supple with no JVD, thyromegaly, lymphadenopathy, or carotid bruit. PMI is not well located. First and second heart sounds are regular. There are no added sounds or murmurs. CHEST: Clear to auscultation. ABDOMEN: Soft and nontender. Bowel sounds are normally present. EXTREMITIES: Reveal no edema. CENTRAL NERVOUS SYSTEM: Intact. DIAGNOSTIC DATA: Last pacemaker check revealed normal pacemaker function. He was 100% in atrial fibrillation/flutter when he was last checked in the office earlier in the weeks. ASSESSMENT: A 61-year-old male patient who has symptomatic atrial fibrillation on oral anticoagulation at this time. He did not respond to Multaq, so that has been discontinued and he is being admitted for initiation of Tikosyn. Further management will depend on whether he tolerates the Tikosyn or not. His current medications do not seem to have any significant interactions to Tikosyn. We will titrate the dose up as long as the QTc interval does not significantly prolong and then cardiovert him on Saturday morning. MD JASWINDER CEDEÑO/alivia /[id number] D: [id number] T: [id number] HISTORY & PHYSICAL
[~2016-12-07 07:54] MED LIST changes: -ELIQUIS5 MG PO; -PREVACID30 M1 PO; -TIKOSYN125 MCG PO; -VALIUM5 MG PO
[2016-12-07 08:35] LABS: HEMATOCRIT 48.7 % (37.0-53.0); HEMOGLOBIN 17.1 g/dL (11.0-16.0); MCH 32.8 pg (27.0-34.0); MCHC 35.1 gm/dL (32.0-36.5); MCV 93.5 fl (83.0-98.0); MPV 8.5 fl (9.4-12.4); RBC 5.21 M/uL (3.50-5.50); RDW-CV 13.4 % (11.9-14.6); WBC 4.6 K/uL (4.0-11.0)
[2016-12-07] MEDS ORDERED: PERCOCET 5-3251 EACH PO (08:55)
[2016-12-07] MEDS ORDERED: VALIUM5 MG PO (08:56)
[2016-12-07] MEDS ORDERED: PREVACID30 M1 PO (08:57)
[2016-12-07] MEDS ORDERED: DHEA50 M1 PO (08:58)
[2016-12-07] MEDS ORDERED: VOLTAREN 1% GE100 GM TOP (09:02)
[2016-12-07 09:28] LABS: ANION GAP 10.3 (10.0-19.0); CALCIUM 8.7 mg/dL (8.5-10.5); CREATININE 1.2 mg/dL (0.6-1.3); MAGNESIUM 2.5 mg/dL (1.8-2.6); POTASSIUM 4.3 mMol/L (3.7-5.1)
--- NOTE | 2016-12-07 10:30 | NUR ---
Patient is admitted this AM for initiation of Tykosin for AFib after patient had cardioversion 2 weeks ago that was only successful for 10 days. patient had left shoulder surgery 2 weeks ago as well by Dr. Taylor. patient states he is supposed to be wearing a sling. patient lives in [place] w/his . 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 Saline lock is started in right forearm w/20 ga intracath without diff. pt yao well. Education is given as documented patient denies questions at this time. pneumatics are held at this time as patient is independent in his room ad steve and doing well. call light is within reach. patient denies needs. Report is given to JAKOB Dickens.
--- NOTE | 2016-12-07 12:49 | NUR ---
Talked with pt and spouse, spouse known to me as she is a coworker. Lives in [place], here for initiation of Tikosyn. Will go home on discharge, denies anticipating needs. Will follow.
--- NOTE | 2016-12-07 16:58 | NUR ---
ADMITTED FOR TIKOSYN INITIATION. 1ST DOSE GIVEN AT 1130 TODAY NEXT DOSE DUE AT 2100 NEED EKG 1 HOUR BEFORE DOSE AND 1 HOUR AFTER DOSE.
--- NOTE | 2016-12-08 04:46 | NUR ---
A/O. HR 80-100s. SBP 120-140s. ROOM AIR. INDEPENDENT IN ROOM. TIKOSYN GIVEN WITH EKGs DONE 1HR BEORE AND 1HR AFTER ADMISITERING. EKG CHANGES AND ARRHYTHMIAS EARLIER IN SHIFT NOTIFED DR De La Rosa WITH NO NEW ORDERS. C/O L) SHOULER PAIN FROM TORN LIGAMENTS 2 TAB PERCOCET GIVEN. THEN AMBIEN AND ULTRAM GIVEN. INDEPENDENT IN ROOM. NO BM. VOIDS WELL.
--- NOTE | 2016-12-08 18:09 | NUR ---
Significant Event:Patient has been up in room and hallway with . QTC has been <480. Got 250 mcg Tikosyn. Heart rate mostly 90's, occassionally has burst that gets up to 130-140's. Had Ultram once for left shoulder pain with relief. Follow up:Is having some constipation
[2016-12-08 21:15] LABS: INSULIN-LIKE GROWTH FACTOR 1 266.4 ng/mL (60-220)
--- NOTE | 2016-12-09 06:16 | NUR ---
Significant Event: PERCOCET 2 TABS X1 GIVEN AT HS FOR SHOULDER PAIN. 2 ULTRAM GIVEN AT 0426. UP AD ANGÉLICA IN ROOM. C/O CONSTIPATION. NOTE LEFT FOR MD. TIKOSYN GIVEN ORDERED. HEART RHYTHM CONTINUES IN A-FIB. RATES CONTROLLED. Follow up:
[2016-12-09 10:39] LABS: BASOPHIL # 0.1 K/uL (0.0-0.2); BASOPHIL % 1.2 %; EOSINOPHIL # 0.2 K/uL (0.0-0.5); EOSINOPHIL % 4.1 %; HEMATOCRIT 50.5 % (37.0-53.0); HEMOGLOBIN 17.3 g/dL (11.0-16.0); IMMATURE GRANULOCYTE % 0.4 %; LYMPHOCYTE # 1.4 K/uL (0.8-4.0); LYMPHOCYTE % 28.5 %; MCH 32.2 pg (27.0-34.0); MCHC 34.3 gm/dL (32.0-36.5); MONOCYTE # 0.5 K/uL (0.0-1.0); MPV 8.3 fl (9.4-12.4); NEUTROPHIL # (ANC) 2.7 K/uL (1.4-9.0); NEUTROPHIL % 54.8 %; NRBC % 0 /100WBC (0-0.00); PLATELET COUNT 192 K/uL (150-450); RBC 5.37 M/uL (3.50-5.50); WBC 4.9 K/uL (4.0-11.0)
[2016-12-09 10:47] LABS: INR - (THERAPEUTIC) 1.19 (0.92-1.07); PROTIME 12.5 SECONDS (9.8-11.4)
--- NOTE | 2016-12-09 17:20 | NUR ---
Significant Event:Patient has been up ad steve in bathroom. Voiding independently, denies any difficulty. MOM given for c/o constipation, has had a small stool. Ultram for c/o left shoulder pain once. Heparin gtt started at 1000 units/hr, PTTHP. due at 1800. Scheduled for cardioversion in the morning at 0800. NPO at midnight. Follow up:Cardioversion in am
--- NOTE | 2016-12-10 05:52 | NUR ---
Significant Event: DENIES PAIN ALL NIGHT. HEART RHYTHM REMAINS IN A-FIB. NPO AFTER MIDNIGHT FOR CARDIOVERSION TODAY AT 0800. HEPARIN CONTINUES AT 1300 UNITS/HR. NEXT PTTHP AT 0645. PERCOCET GIVEN X1 FOR SHOULDER PAIN. Follow up:
[2016-12-10] MEDS ORDERED: TIKOSYN125 MCG PO (11:07)
[2016-12-10] MEDS ORDERED: ELIQUIS5 MG PO (11:28)
== END 2016-12-10 12:05 | disposition disaster alternative care site (69) | DRG 949 ==
LOC: GPCU 07:54
PROVIDERS: ADMIT Internal Medicine Interventional Cardiology
PROC: 5A2204Z Restoration of Cardiac Rhythm, Single (ICD-10-PCS; principal; 2016-12-10)
DX: Z51.81 Encounter for therapeutic drug level monitoring (principal); I42.1 Obstructive hypertrophic cardiomyopathy; I51.4 Myocarditis, unspecified; I48.0 Paroxysmal atrial fibrillation; E03.9 Hypothyroidism, unspecified; I10 Essential (primary) hypertension
CPT/HCPCS: J1644; J7120